=== PATIENT | female | born 1940 | race Caucasian/White ===

== ENCOUNTER 2019-12-06 10:42 | Outpatient (CLI) | payer MEDICARE, SELFPAY ==
[2019-12-06] MEDS: DENOSUMAB 60 MG/ML SYRINGE SUB-Q (11:14)
--- NOTE | 2019-12-06 11:17 | PC.NURSE ---
PT TO ROOM 201 AMB WITH DAUGHTER FOR PROLIA INJECTION. PROLIA GIVEN ORDERED. PT TOLERATED WELL. SITE WITHOUT REDNESS, EDEMA OR DRAINAGE. BANDAID APPLIED. DISCHARGED TO HOME AMBULATORY WITH DAUGHTER.
== END 2019-12-06 10:43 | disposition home or self-care (01) ==
PROVIDERS: PCP Internal Medicine; Visit Provider Internal Medicine
DX: M81.0 Age-related osteoporosis without current pathological fracture (principal)
CPT/HCPCS: 96372; J0897

== ENCOUNTER 2020-06-18 14:13 | Outpatient (CLI) | payer MEDICARE, SELFPAY ==
--- NOTE | ~2020-06-18 | XR_ITS ---
EXAMINATION: XR chest 2V DATE: 06/18/2020 14:39 INDICATION: Chronic cough. Chronic obstructive pulmonary disease. TECHNIQUE: Frontal and lateral views of the chest were obtained. COMPARISON: Chest 2 views 06/21/2019 FINDINGS: There is mild atelectasis at left lung base. No pleural effusion or pneumothorax. The heart size is normal. Calcified left hilar lymph nodes are consistent with old granulomatous disease. Ther e is a chronic compression fracture in lower thoracic spine. IMPRESSION: 1. Mild atelectasis at left lung base. Reviewed, dictated and finalized at location B. [employer] LEAD[employer]
[2020-06-18 14:30] LABS: Add Urine Microscopic? YES; Appearance Urine Clear (Clear); Bilirubin Urine Negative (Negative); Blood Urine 1+ (Negative); Color Urine Yellow (Yellow); Glucose Urine UA Negative (Negative); Ketones Urine Negative (Negative); Leukocyte Esterase Ur 1+ (Negative); Nitrate Urine Negative (Negative); Protein Urine Negative (Negative); Specific Grav Ur 1.015 (1.010-1.020); Urobilinogen Urine 0.2 mg/dL (0.2-1.0); pH Urine 5.5 (5.0-8.0)
[2020-06-18 14:40] LABS: Bacteria Urine 1+ /hpf; Squamous Epithelial Cell Urine Rare /hpf (Few)
== END 2020-06-18 14:14 | disposition home or self-care (01) ==
LOC: CHSLAB 14:17
PROVIDERS: PCP Internal Medicine; Visit Provider Internal Medicine
DX: R31.9 Hematuria, unspecified (principal); N39.0 Urinary tract infection, site not specified; R05 Cough; J44.9 Chronic obstructive pulmonary disease, unspecified
CPT/HCPCS: 71046; 81001; 87086; 87088; 87147; 87186; 88112

== ENCOUNTER 2020-07-03 13:16 | Outpatient (CLI) | payer MEDICARE, SELFPAY ==
[2020-07-03] MEDS: DENOSUMAB 60 MG/ML SYRINGE SUB-Q (14:00)
--- NOTE | 2020-07-03 14:02 | PC.NURSE ---
Patient here for q 6 month Prolia injection. Education on medication given. No concerns. She is accompanied by daughter. Injection administered. Tolerated well. Safe exit of hospital.
== END 2020-07-03 13:17 | disposition home or self-care (01) ==
LOC: CHSTREATRM 13:19
PROVIDERS: PCP Internal Medicine; Visit Provider Internal Medicine
DX: M81.0 Age-related osteoporosis without current pathological fracture (principal)
CPT/HCPCS: 96372; J0897

== ENCOUNTER 2020-12-26 10:57 | Outpatient (CLI) | payer MEDICARE, SELFPAY ==
--- NOTE | ~2020-12-26 | XR_ITS ---
EXAMINATION: XR shoulder RT min 2V INDICATION: Right shoulder pain TECHNIQUE: Four views of the right shoulder are submitted. COMPARISON: Chest radiographs dating back to 05/01/2016 FINDINGS: There is a chronic healed fracture of the proximal humerus. No acute fracture is identified . There is moderate glenohumeral joint osteoarthritis. Calcified atherosclerosis is noted. Soft tissu es are unremarkable. IMPRESSION: 1. Chronic healed fracture of the proximal humerus and moderate glenohumeral joint osteoarthritis wit hout acute findings. Reviewed, dictated and finalized at location A. IMPRESSION: 1. Chronic healed fracture of the proximal humerus and moderate glenohumeral dayanara int osteoarthritis without acute findings.
--- NOTE | ~2020-12-26 | XR_ITS ---
EXAMINATION:[id number] DATE: 12/26/2020 11:32 INDICATION: Neck pain TECHNIQUE: AP, lateral, and odontoid views of the cervical spine are provided. COMPARISON: 11/02/2014 FINDINGS: There are 2 mm of unchanged anterolisthesis of C2 on C3 and 4 mm of stable retrolisthesis o f C5 on C6. There is severe loss of intervertebral disc space height at C5-6 and moderate loss of int ervertebral disc space height at C4-5 and C6-7. The odontoid is intact. No fracture is identified. Th e vertebral body heights are maintained. There is severe multilevel facet and uncovertebral joint ost eoarthritis. Prevertebral soft tissues are normal. Calcified atherosclerosis is noted. IMPRESSION: 1. Severe cervical spondylosis with interval worsening. Reviewed, dictated and finalized at location A.
== END 2020-12-26 10:58 | disposition home or self-care (01) ==
LOC: CHSIMG 11:00
PROVIDERS: PCP Internal Medicine; Visit Provider Internal Medicine
DX: M54.2 Cervicalgia (principal); M25.511 Pain in right shoulder
CPT/HCPCS: 72040; 73030

== ENCOUNTER 2021-11-01 16:06 | Outpatient (CLI) | payer MEDICARE, SELFPAY ==
--- NOTE | ~2021-11-01 | XR_ITS ---
EXAMINATION: XR foot LT min 3V DATE: 11/01/2021 16:39 INDICATION: Left foot swelling TECHNIQUE: Dorsoplantar, lateral, and 2 oblique views of the left foot were obtained. COMPARISON: None. FINDINGS: There is marked soft tissue swelling of the foot and ankle. Bone alignment is normal. There is no fracture. There is mild osteoarthritis of multiple interphalangeal joints as well as in the mi dfoot. IMPRESSION: 1. Marked soft tissue swelling without acute osseous abnormality. Reviewed, dictated and finalized at location F.
--- NOTE | ~2021-11-01 | XR_ITS ---
EXAMINATION: XR ankle LT min 3V DATE: 11/01/2021 16:39 INDICATION: Left ankle swelling and pain TECHNIQUE: Anteroposterior, lateral, mortise, and additional oblique view of the ankle were obtained. COMPARISON: None. FINDINGS: There is marked soft tissue swelling of ankle. Bone alignment is normal. There is no fractu re. The joint spaces are normal. IMPRESSION: 1. Marked soft tissue swelling the ankle without acute osseous abnormality. Reviewed, dictated and finalized at location F.
[2021-11-01 16:46] LABS: NT Pro B Type Natriuretic Pept 4114 pg/mL (0-450); Uric Acid 5.5 mg/dL (2.6-6.0)
[2021-11-01 16:55] LABS: CRP < 0.2 mg/dL (0.0-0.9)
[2021-11-04 16:37] LABS: Alanine Aminotransferase 36 U/L (14-59); Albumin Level 3.7 g/dL (3.4-5.0); Alkaline Phosphatase 91 U/L (46-116); Anion Gap 8 mmol/L (8-16); Aspartate Amino Transferase 29 U/L (15-37); Bilirubin,Total 0.4 mg/dL (0.00-1.00); Blood Urea Nitrogen 28 mg/dL (7-18); Calcium 8.8 mg/dL (8.5-10.1); Carbon Dioxide 28 mmol/L (21-32); Chloride 105 mmol/L (98-108); Estimated Glomerular Filt Rate 42; Glucose 123 mg/dL (70-99); Osmolality Calculated 298 mOsm/kg (285-295); Potassium 4.5 mmol/L (3.5-5.1); Sodium 141 mmol/L (136-145); Thyroid Stimulating Hormone 3.14 uIU/mL (0.36-3.74); Total Protein 6.7 g/dL (6.4-8.2)
== END 2021-11-01 16:07 | disposition home or self-care (01) ==
LOC: CHSLAB 16:09
PROVIDERS: Internal Medicine; PCP Internal Medicine; Visit Provider Nurse Practitioner Family
DX: M25.572 Pain in left ankle and joints of left foot (principal); M25.472 Effusion, left ankle; M79.89 Other specified soft tissue disorders; I50.9 Heart failure, unspecified
CPT/HCPCS: 36415; 73610; 73630; 80053; 83880; 84439; 84443; 84550; 86140

== ENCOUNTER 2022-03-10 10:16 | Outpatient (CLI) | payer MEDICARE, SELFPAY ==
--- NOTE | ~2022-03-10 | DEXA_ITS ---
Bone Density Report Name: TAMMIE TEJADA Age: 81 Sex: Female Ethnicity: White Date of : 1940 Indication: postmenopausal; screening for osteoporosis; height loss; prior fracture; hysterectomy; rheumatoid arthritis; Referring Provider: Amanda Mchugh Study: Bone densitometry was performed. Exam Date: March 10, 2022 Accession number: [id number] Bone Density: Region BMD T-score Z-score Classification AP Spine(L2, L3, L4) 0.974 -1.0 1.9 Normal Femoral Neck (Left) 0.648 -1.8 0.6 Osteopenia Total Hip (Left) 0.778 -1.3 0.9 Osteopenia Femoral Neck (Right) 0.584 -2.4 0.1 Osteopenia Total Hip (Right) 0.772 -1.4 0.9 Osteopenia Femoral Neck Mean 0.616 -2.1 0.4 Osteopenia Total Hip Mean 0.775 -1.4 0.9 Osteopenia World Health Organization criteria for BMD impression classify patients as: Normal (T-score at or above -1.0), Osteopenia (T-score between -1.0 and -2.5), or Osteoporosis (T-score at or below -2.5). 10-year Fracture Risk(1): Major Osteoporotic Fracture 32% Hip Fracture 16% Reported Risk Factors: [place] (), Neck BMD=0.584, BMI=28.7, previous fracture, smoking, rheumatoid arthritis (1) FRAX(R) Version 3.08. Fracture probability calculated for an untreated patient. Fracture probability may be lower if the patient has received treatment. Clinical Information Provided by Patient: Has had a low trauma fracture Smokes Has rheumatoid arthritis Has used the following medications: Prolia (i.e. denosumab), Vitamin D Has the following medical conditions: Hysterectomy Patient maximum height was 67 Menopause Age: 48 No regular weight bearing exercise Drinks caffeinated beverages Onset of menses at age 17 Number of children 2 Impression: The patient has low bone mass, based on the Right Femoral Neck T-score. The patient has risk factors, including: smoking, previous fracture. Discussion: BONE DENSITY IS LOW AT ONE OR MORE SKELETAL SITES. This patient's lowest T-score is low at one or more skeletal sites. It meets the World Health Organization's (WHO) criteria for ?low bone mass? (T-score between -1.0 and -2.5). The patient's 10-year risk of fracture as calculated by FRAX is less than the threshold where pharmacological therapy is recommended by the National Osteoporosis Foundation (NOF). However, all treatment decisions require clinical judgment and consideration of individual patient factors, including patient preferences, comorbidities, previous drug use, risk factors not captured in the FRAX model (e.g., frailty, falls, vitamin D deficiency, increased bone turnover, interval significant decline in bone density) and possible under or overestimation of fracture risk by FRAX. The patient should follow a healthful lifestyle (good nutrition with adequate calc
== END 2022-03-10 10:17 | disposition home or self-care (01) ==
LOC: CHSIMG 10:18
PROVIDERS: PCP Internal Medicine; Visit Provider Internal Medicine
DX: M81.0 Age-related osteoporosis without current pathological fracture (principal)
CPT/HCPCS: 77080

== ENCOUNTER 2022-03-11 09:43 | Outpatient (CLI) | payer MEDICARE, SELFPAY ==
[2022-03-11 09:56] VITALS: BMI 27.0
[2022-03-11] MEDS: DENOSUMAB 60 MG/ML SYRINGE SUB-Q (10:01)
[2022-03-11 10:04] VITALS: BP 122/60; PULSE 50; RESP 14; TEMP 36.7; O2SAT 94
--- NOTE | 2022-03-11 10:07 | PC.NURSE ---
Patient here for Prolia injection. Has had it in past without difficulty. Education given. Prolia injection administered. SEE MAR. Tolerated well. Safe exit of hospital.
== END 2022-03-11 09:44 | disposition home or self-care (01) ==
PROVIDERS: PCP Internal Medicine; Visit Provider Internal Medicine
DX: M81.0 Age-related osteoporosis without current pathological fracture (principal)
CPT/HCPCS: 96372; J0897

== ENCOUNTER 2022-06-23 15:41 | Outpatient (CLI) | payer MEDICARE, SELFPAY ==
--- NOTE | ~2022-06-23 | CT_ITS ---
EXAMINATION: CT brain wo con DATE: 06/23/2022 16:02 INDICATION: Head injury. TECHNIQUE: Computed tomography (CT) of the head was performed without intravenous contrast. The mA wa s adjusted according to patient size. Iterative reconstruction technique was employed. The dose-lengt h product was 529.67 mGy-cm. COMPARISON: None FINDINGS: There are scattered areas of low attenuation in the cerebral white matter, which is within normal limits for the patient's age. There is no intracranial hemorrhage, acute infarction, or abnor mal intracranial mass lesion. The ventricles are normal in size. There are likely changes of ocular l ens replacement surgeries. The paranasal sinuses are clear. The mastoid air cells are normal. IMPRESSION: 1. Normal aging brain. Reviewed, dictated and finalized at location A. KDOWN MAN IMPRESSION: 1. Normal aging brain.
== END 2022-06-23 15:42 | disposition home or self-care (01) ==
LOC: CHSIMG 15:44
PROVIDERS: PCP Internal Medicine; Visit Provider Internal Medicine
DX: S06.9X9A Unspecified intracranial injury with loss of consciousness of unspecified duration, initial encounter (principal)
CPT/HCPCS: 70450

== ENCOUNTER 2022-09-24 10:40 | Outpatient (CLI) | payer MEDICARE, SELFPAY ==
[2022-09-24] MEDS: DENOSUMAB 60 MG/ML SYRINGE SUB-Q (11:10)
== END 2022-09-24 10:41 | disposition home or self-care (01) ==
LOC: CHSTREATRM 10:44
PROVIDERS: PCP Internal Medicine; Visit Provider Internal Medicine
DX: M81.0 Age-related osteoporosis without current pathological fracture (principal)
CPT/HCPCS: 96372; J0897

== ENCOUNTER 2023-04-13 13:56 | Outpatient (CLI) | payer MEDICARE, SELFPAY ==
[2023-04-13] MEDS: DENOSUMAB 60 MG/ML SYRINGE SUB-Q (14:06)
[2023-04-13 14:10] VITALS: BP 130/75; PULSE 68; RESP 16; TEMP 36.7; O2SAT 94
[2023-04-13 14:11] VITALS: BMI 28.2
--- NOTE | 2023-04-13 14:13 | PC.NURSE ---
Patient here for q 6 month Prolia injection. Education given. No concerns voiced. Prolia injection administered. SEE JUL. Tolerated well. Will return in September-will be notified in August. Safe exit of hospital with dtr per ambulatory.
== END 2023-04-13 13:57 | disposition home or self-care (01) ==
LOC: CHSTREATRM 14:00
PROVIDERS: PCP Internal Medicine; Visit Provider Internal Medicine
DX: M81.0 Age-related osteoporosis without current pathological fracture (principal)
CPT/HCPCS: 96372; J0897

== ENCOUNTER 2023-11-04 15:57 | Outpatient (CLI) | payer MEDICARE, SELFPAY ==
[2023-11-04 16:07] VITALS: BMI 28.4
[2023-11-04] MEDS: DENOSUMAB 60 MG/ML SYRINGE SUB-Q (16:15)
[2023-11-04 16:21] VITALS: BP 170/82; PULSE 74; RESP 18; TEMP 36.1; O2SAT 96
== END 2023-11-04 15:58 | disposition home or self-care (01) ==
LOC: CHSTREATRM 16:00
PROVIDERS: PCP Internal Medicine; Visit Provider Internal Medicine
DX: M81.0 Age-related osteoporosis without current pathological fracture (principal)
CPT/HCPCS: 96372; J0897

== ENCOUNTER 2024-03-14 14:27 | Outpatient (CLI) | payer MEDICARE, SELFPAY ==
--- NOTE | ~2024-03-14 | DEXA_ITS ---
Bone Density Report Name: TAMMIE TEJADA Age: 83 Sex: Female Ethnicity: White Date of : 1940 Indication: osteopenia; monitoring treatment; height loss; prior fracture; hysterectomy; rheumatoid arthritis; Referring Provider: Amanda Mchugh Study: Bone densitometry was performed. Exam Date: March 14, 2024 Accession number: [id number] Bone Density: Region BMD T-score Z-score Classification AP Spine(L1-L4) 1.111 0.6 3.5 Normal Femoral Neck (Left) 0.621 -2.1 0.5 Osteopenia Total Hip (Left) 0.804 -1.1 1.2 Osteopenia Femoral Neck (Right) 0.586 -2.4 0.2 Osteopenia Total Hip (Right) 0.781 -1.3 1.0 Osteopenia Femoral Neck Mean 0.604 -2.2 0.3 Osteopenia Total Hip Mean 0.793 -1.2 1.1 Osteopenia World Health Organization criteria for BMD impression classify patients as: Normal (T-score at or above -1.0), Osteopenia (T-score between -1.0 and -2.5), or Osteoporosis (T-score at or below -2.5). 10-year Fracture Risk: FRAX not reported because: Treated for osteoporosis Previous Exams: Region Exam Age BMD T-score BMD Change BMD Change Date g/cm2 vs Baseline vs Previous Total Hip(Left) 03/14/2024 83 0.804 -1.1 0.026 (3.4%) 0.026 (3.4%) 03/10/2022 81 0.778 -1.3 Total Hip(Right) 03/14/2024 83 0.781 -1.3 0.009 (1.2%) 0.009 (1.2%) 03/10/2022 81 0.772 -1.4 *Denotes significance at 95% confidence level, LSC for Total Hip = 0.027 g/cm2 Clinical Information Provided by Patient: Has had a low trauma fracture Smokes Has rheumatoid arthritis Is being treated for osteoporosis Has used the following medications: Prolia (i.e. denosumab), Vitamin D Has the following medical conditions: Hysterectomy Patient maximum height was 67 Menopause Age: 48 No regular weight bearing exercise Drinks caffeinated beverages Onset of menses at age 17 Number of children 2 Impression: The patient has low bone mass, based on the Right Femoral Neck T-score. The patient has risk factors, including: smoking, previous fracture. No significant bone loss was observed. Discussion: PATIENT UNDER TREATMENT WITH NO SIGNIFICANT BMD LOSS SINCE LAST EXAM. In an untreated patient, BMD typically declines with age. A lack of decline or gain is usually a sign that treatment is efficacious and fracture risk is reduced. It is important to ask patients whether they are taking their medications and to encourage continued and appropriate compliance with their osteoporosis therapies to
== END 2024-03-14 14:28 | disposition home or self-care (01) ==
PROVIDERS: PCP Internal Medicine; Visit Provider Internal Medicine
DX: Z78.0 Asymptomatic menopausal state (principal); M85.89 Other specified disorders of bone density and structure, multiple sites
CPT/HCPCS: 77080